=== PATIENT | male | born 1980 | race Caucasian/White ===

== ENCOUNTER 2020-06-23 14:05 | Emergency (ER) | payer MEDICAID ==
[~2020-06-23] VITALS: Ht 182.9 cm; Wt 81.6 kg
[2020-06-23 14:22] VITALS: BP_SYST 137
[2020-06-23 15:12] VITALS: BP_SYST 151
[2020-06-23 15:17] LABS: BASOPHILS % (AUTO) 0.2 % (0.0-2.0); EOSINOPHILS # (AUTO) 0.2 K/uL (0.0-0.4); EOSINOPHILS % (AUTO) 0.9 % (0.0-4.0); HEMOGLOBIN 14.2 g/dL (14.0-18.0); LYMPHOCYTES # (AUTO) 1.7 K/uL (1.0-5.5); LYMPHOCYTES % (AUTO) 10.4 % (20.5-51.5); MEAN CORPUSCULAR HEMOGLOBIN 31 pg (27-31); MEAN CORPUSCULAR HGB CONC 34 % (32-36); MEAN CORPUSCULAR VOLUME 92 fL (79.0-98.0); MONOCYTES # (AUTO) 1.6 K/uL (0.0-1.0); MONOCYTES % (AUTO) 10.2 % (1.7-9.3); NEUTROPHILS # (AUTO) 12.6 K/uL (1.8-7.7); NEUTROPHILS % (AUTO) 78.3 % (40.0-70.0); PLATELET COUNT (AUTO) 233 K/uL (130-430); RED BLOOD CELL COUNT(AUTO) 4.57 MIL/uL (4.2-6.2); RED CELL DISTRIBUTION WIDTH 13.4 % (9.0-15.0); WHITE BLOOD COUNT (AUTO) 16.1 K/uL (4.8-10.8)
[2020-06-23 15:31] LABS: CALCIUM 8.1 mg/dL (8.4-11.0); CREATININE 0.92 mg/dL (0.55-1.30); POTASSIUM 3.8 mmol/L (3.5-5.1)
[2020-06-23 15:36] LABS: ALBUMIN 2.8 g/dL (3.4-4.8); TOTAL BILIRUBIN 0.3 mg/dL (0.0-1.0)
[2020-06-23 15:37] LABS: INR 0.9 (0.80-1.20); PROTHROMBIN TIME 9.7 SECS (9.5-12.5)
[2020-06-23 15:47] LABS: C-REACTIVE PROTEIN QUANT 8.2 mg/dL (0-0.5)
[2020-06-23] MEDS ORDERED: VANCOMYCIN HCL 1,000 MG in NS 250 ML IV ONE (16:15)
[2020-06-23] MEDS ORDERED: CLIN300C12 PO (16:46)
[2020-06-23] MEDS ORDERED: VANCOMYCIN HCL 1000 MG/VIAL IV ONE (17:24)
== END 2020-06-23 18:30 | disposition home or self-care (01) ==
LOC: SED 14:05
DX: L03.113 Cellulitis of right upper limb (principal)
CPT/HCPCS: 36415; 73080; 80053; 83605; 85025; 85610; 85730; 86140; 96365; 99284; J3370

== ENCOUNTER 2021-01-07 09:06 | Emergency (ER) | payer MEDICAID ==
[~2021-01-07] VITALS: Ht 185.4 cm; Wt 81.6 kg
[~2021-01-07 09:06] MED LIST: CLIN300C12 PO
[2021-01-07 09:10] VITALS: BP_SYST 150
--- NOTE | 2021-01-07 09:11 | NUR ---
BROUGHT BACK TO BED #2 AND TRIAGED. REPORT GIVEN TO MARTINE
--- NOTE | 2021-01-07 09:22 | NUR ---
PT COMES TO ER WITH GROIN PAIN FOR THE LAST TWO DYS. SITE RED, HOT TO TOUCH/PAINFUL. DENIES ANY FEVERS/CHILLS. PT DOES ADMIT TO SHAVING IN THE AREA. YING FOR ER MD VICK.
--- NOTE | 2021-01-07 09:26 | NUR ---
DR PADILLA IN ROOM FOR EXAM.
[2021-01-07] MEDS ORDERED: SULF1TAB48 PO (10:13)
[2021-01-07] MEDS ORDERED: IBUP-1969 PO (10:14)
--- NOTE | 2021-01-07 10:16 | NUR ---
Patient given written and verbal discharge instructions and verbalizes understanding. ER MD discussed with patient the results and treatment provided. Patient in stable condition. ID arm band removed. Rx of BACTRIM,MOTRIN given. Patient educated on pain management and to follow up with PMD. Pain Scale . Opportunity for questions provided and answered. Medication side effect fact sheet provided.
== END 2021-01-07 10:16 | disposition home or self-care (01) ==
LOC: SED 09:06
DX: N49.2 Inflammatory disorders of scrotum (principal); Z79.899 Other long term (current) drug therapy
CPT/HCPCS: 99283

== ENCOUNTER 2021-05-18 16:25 | Emergency (ER) | payer SELFPAY ==
[~2021-05-18] VITALS: Ht 185.4 cm; Wt 81.6 kg
[~2021-05-18 16:25] MED LIST changes: +CLIN-142 PO; -CLIN300C12 PO; +IBUP-1969 PO; +SULF1TAB48 PO
[2021-05-18 17:00] VITALS: BP_SYST 146
--- NOTE | 2021-05-18 17:04 | NUR ---
pt. came byself with c/o pain to left shoulder 10/14
--- NOTE | 2021-05-18 18:20 | NUR ---
ER in triage examining patient.
[2021-05-18 19:02] VITALS: BP_SYST 145
--- NOTE | 2021-05-18 19:15 | NUR ---
shoulder sling applied, pt. requesting pain med
[2021-05-18] MEDS ORDERED: LIDO700A30 TP (19:16)
[2021-05-18] MEDS ORDERED: NAPR-1172 PO (19:16)
--- NOTE | 2021-05-18 19:25 | NUR ---
Patient given written and verbal discharge instructions and verbalizes understanding. ER MD discussed with patient the results and treatment provided. Patient in stable condition. ID arm band removed. Rx of Naproxen given. Patient educated on pain management and to follow up with PMD. Pain Scale 8. Opportunity for questions provided and answered. Medication side effect fact sheet provided.
[2021-05-18] MEDS ORDERED: NAPROXEN 250 MG TABLET PO ONE (19:30)
== END 2021-05-18 19:24 | disposition home or self-care (01) ==
LOC: SED 16:25
DX: M25.512 Pain in left shoulder (principal); Z79.899 Other long term (current) drug therapy
CPT/HCPCS: 73030; 99283

== ENCOUNTER 2021-05-20 12:56 | Emergency (ER) | payer SELFPAY ==
[~2021-05-20] VITALS: Ht 185.4 cm; Wt 81.6 kg
[2021-05-20 12:56] VITALS: BP_SYST 128
[~2021-05-20 12:56] MED LIST changes: +LIDO700A30 TP; +NAPR-1172 PO
[2021-05-20] MEDS ORDERED: KETOROLAC TROMETHAMINE 60 MG/2 ML VIAL IM ONE (13:30)
[2021-05-20] MEDS ORDERED: IBUP-1971 PO (14:08)
[2021-05-20] MEDS ORDERED: HYDR-3917 PO (14:08)
[2021-05-20 14:16] LABS: CALCIUM 8.7 mg/dL (8.4-11.0); CREATININE 0.96 mg/dL (0.55-1.30); POTASSIUM 3.4 mmol/L (3.5-5.1)
[2021-05-20 14:19] LABS: HEMATOCRIT 44.8 % (36-54); HEMOGLOBIN 14.6 g/dL (14.0-18.0); MEAN CORPUSCULAR HEMOGLOBIN 30 pg (27-31); MEAN CORPUSCULAR HGB CONC 33 % (32-36); MEAN CORPUSCULAR VOLUME 90 fL (79.0-98.0); PLATELET COUNT (AUTO) 179 K/uL (130-430); RED BLOOD CELL COUNT(AUTO) 4.96 MIL/uL (4.2-6.2); RED CELL DISTRIBUTION WIDTH 14.2 % (9.0-15.0); WHITE BLOOD COUNT (AUTO) 18.4 K/uL (4.8-10.8)
[2021-05-20 14:29] LABS: ALBUMIN 2.9 g/dL (3.4-4.8); TOTAL BILIRUBIN 1.1 mg/dL (0.0-1.0)
[2021-05-20 14:37] LABS: C-REACTIVE PROTEIN QUANT 29.6 mg/dL (0-0.5)
[2021-05-20 15:00] LABS: ATYPICAL LYMPHOCYTES % 2 % (0-0); BAND % (MANUAL) 6 % (0-6); BASOPHILS % (MANUAL) 0 % (0-2); EOSINOPHILS % (MANUAL) 0 % (0-7); LYMPHOCYTES % (MANUAL) 6 % (20-46); MONOCYTES % (MANUAL) 11 % (0-11)
[2021-05-20 15:16] VITALS: BP_SYST 124
[2021-05-20 16:41] LABS: ERYTHROCYTE SEDIMENTATION RATE 23 MM/HR (0-15)
== END 2021-05-20 15:16 | disposition home or self-care (01) ==
LOC: SED 12:56
DX: M79.641 Pain in right hand (principal); Z79.899 Other long term (current) drug therapy
CPT/HCPCS: 36415; 70450; 76376; 80053; 85007; 85027; 85651; 86140; 96372; 99284; J1885

== ENCOUNTER 2021-05-21 06:35 | Inpatient (IN) | payer SELFPAY ==
[~2021-05-21] VITALS: Ht 185.4 cm; Wt 81.6 kg
[~2021-05-21 06:35] MED LIST changes: +HYDR-3917 PO; +IBUP-1971 PO
[2021-05-21 06:45] VITALS: BP_SYST 140
[2021-05-21] MEDS ORDERED: VANCOMYCIN HCL 1,000 MG in NS 250 ML IV ONE (07:00)
[2021-05-21] MEDS ORDERED: CLINDAMYCIN 600 mg/50mL D5W 50 ML IV ONE (07:00)
[2021-05-21] MEDS ORDERED: VANCOMYCIN HCL 1000 MG/VIAL IV ONE ×2 (07:45→07:46)
[2021-05-21 08:09] LABS: BASOPHILS % (AUTO) 0.2 % (0.0-2.0); EOSINOPHILS # (AUTO) 0.1 K/uL (0.0-0.4); EOSINOPHILS % (AUTO) 0.3 % (0.0-4.0); HEMOGLOBIN 14.7 g/dL (14.0-18.0); LYMPHOCYTES # (AUTO) 1.5 K/uL (1.0-5.5); LYMPHOCYTES % (AUTO) 6.8 % (20.5-51.5); MEAN CORPUSCULAR HEMOGLOBIN 30 pg (27-31); MEAN CORPUSCULAR HGB CONC 33 % (32-36); MEAN CORPUSCULAR VOLUME 91 fL (79.0-98.0); MONOCYTES # (AUTO) 1.5 K/uL (0.0-1.0); NEUTROPHILS # (AUTO) 18.3 K/uL (1.8-7.7); NEUTROPHILS % (AUTO) 85.7 % (40.0-70.0); PLATELET COUNT (AUTO) 198 K/uL (130-430); RED BLOOD CELL COUNT(AUTO) 4.97 MIL/uL (4.2-6.2); RED CELL DISTRIBUTION WIDTH 14.3 % (9.0-15.0); WHITE BLOOD COUNT (AUTO) 21.4 K/uL (4.8-10.8)
[2021-05-21 08:28] LABS: CALCIUM 9.1 mg/dL (8.4-11.0); CREATININE 0.75 mg/dL (0.55-1.30); POTASSIUM 3.8 mmol/L (3.5-5.1)
[2021-05-21 08:42] LABS: ALBUMIN 2.4 g/dL (3.4-4.8); TOTAL BILIRUBIN 0.1 mg/dL (0.0-1.0)
[2021-05-21 09:11] LABS: C-REACTIVE PROTEIN QUANT 20.7 mg/dL (0-0.5)
[2021-05-21 12:44] VITALS: BP_SYST 149
[2021-05-21 12:46] VITALS: BP_SYST 149
[2021-05-21] MEDS ORDERED: NALOXONE HCL 0.4 MG/ML AMP (NARCAN) IVP PRN ×2 (13:45)
[2021-05-21] MEDS: VANCOMYCIN HCL 1,000 MG in NS 250 ML IV SCH ×2 (14:13→23:23)
[2021-05-21] MEDS: HYDROcodone/ACETAMIN 5-325 MG TAB (NORCO/ VICODIN) PO PRN ×2 (15:11→21:07)
[2021-05-21] MEDS ORDERED: DOCUSATE SODIUM 100 MG CAPSULE PO PRN (16:00)
[2021-05-21] MEDS ORDERED: ONDANSETRON HCL 4 MG/2 ML VIAL IVP PRN (16:00)
[2021-05-21] MEDS ORDERED: LORazepam 2 MG/ML VIAL IVP PRN (16:00)
[2021-05-21] MEDS ORDERED: ACETAMINOPHEN 325 MG TABLET PO PRN (16:00)
[2021-05-21] MEDS ORDERED: MUPIROCIN 2% TOPICAL OINTMENT 22 GM NS PRN (16:00)
[2021-05-21] MEDS ORDERED: ZOLPIDEM TARTRATE 5 MG TABLET PO PRN (16:00)
[2021-05-21] MEDS ORDERED: MAGNESIUM SULFATE 50 ML IV PRN (16:00)
[2021-05-21] MEDS ORDERED: POTASSIUM CHLORIDE 20 MEQ TAB.PRT.SR PO PRN (16:00)
[2021-05-21 18:00] VITALS: BP_SYST 134
[2021-05-21 20:45] VITALS: BP_SYST 129
[2021-05-21] MEDS ORDERED: cefTRIAXone 1 GM VIAL ONE (21:08)
[2021-05-21] MEDS: NACL 0.9% 1,000 ML IV SCH (21:24)
[2021-05-21] MEDS: HEPARIN SODIUM,PORCINE 5,000 UNITS/ML VIAL SUBCUT SCH (21:40)
[2021-05-22 00:08] VITALS: BP_SYST 144
[2021-05-22] MEDS: NACL 0.9% 1,000 ML IV SCH ×3 (01:40→14:10)
[2021-05-22] MEDS: VANCOMYCIN HCL 1,000 MG in NS 250 ML IV SCH ×3 (06:17→22:00)
[2021-05-22 06:32] LABS: BASOPHILS % (AUTO) 0.1 % (0.0-2.0); EOSINOPHILS # (AUTO) 0.1 K/uL (0.0-0.4); EOSINOPHILS % (AUTO) 0.6 % (0.0-4.0); HEMATOCRIT 42.4 % (36-54); HEMOGLOBIN 14.1 g/dL (14.0-18.0); LYMPHOCYTES # (AUTO) 1.7 K/uL (1.0-5.5); LYMPHOCYTES % (AUTO) 9.5 % (20.5-51.5); MEAN CORPUSCULAR HEMOGLOBIN 30 pg (27-31); MEAN CORPUSCULAR HGB CONC 33 % (32-36); MEAN CORPUSCULAR VOLUME 90 fL (79.0-98.0); MONOCYTES # (AUTO) 1.6 K/uL (0.0-1.0); MONOCYTES % (AUTO) 8.6 % (1.7-9.3); NEUTROPHILS # (AUTO) 14.9 K/uL (1.8-7.7); NEUTROPHILS % (AUTO) 81.2 % (40.0-70.0); PLATELET COUNT (AUTO) 201 K/uL (130-430); RED BLOOD CELL COUNT(AUTO) 4.72 MIL/uL (4.2-6.2); WHITE BLOOD COUNT (AUTO) 18.3 K/uL (4.8-10.8)
[2021-05-22 08:00] VITALS: BP_SYST 148
[2021-05-22] MEDS: HYDROcodone/ACETAMIN 5-325 MG TAB (NORCO/ VICODIN) PO PRN ×2 (08:57→18:41)
[2021-05-22] MEDS: HEPARIN SODIUM,PORCINE 5,000 UNITS/ML VIAL SUBCUT SCH ×2 (09:00→21:22)
[2021-05-22 09:01] LABS: CALCIUM 8.5 mg/dL (8.4-11.0); CREATININE 0.66 mg/dL (0.55-1.30); POTASSIUM 4.2 mmol/L (3.5-5.1)
[2021-05-22 12:00] VITALS: BP_SYST 137
[2021-05-22 12:33] LABS: BARBITURATE, URINE NEGATIVE (NEG <=200); BENZODIAZEPINE, URINE NEGATIVE (NEG <=150); CANNABINOID, URINE NEGATIVE (NEG <=50); COCAINE, URINE NEGATIVE (NEG <=150); METHAMPHETAMINES SCREEN,URINE POSITIVE (NEG <=500); OPIATE, URINE POSITIVE (NEG <=100); PHENCYCLIDINE SCREEN,URINE NEGATIVE (NEG <=25); UR TRICYCLIC ANTIDEPRESSANTS NEGATIVE (NEG <=300); URINE AMPHETAMINE POSITIVE (NEG <=500); URINE METHADONE NEGATIVE (NEG <=200); URINE OXYCODONE SCREEN NEGATIVE (NEG <=100); URINE PROPOXYPHENE SCREEN NEGATIVE (NEG <=300)
[2021-05-22 12:58] LABS: C-REACTIVE PROTEIN QUANT 23.9 mg/dL (0-0.5)
[2021-05-22 16:00] VITALS: BP_SYST 140
[2021-05-22 21:32] VITALS: BP_SYST 103; BP_SYST 130
[2021-05-23] MEDS: NACL 0.9% 1,000 ML IV SCH ×3 (01:20→17:33)
[2021-05-23] MEDS: HYDROcodone/ACETAMIN 5-325 MG TAB (NORCO/ VICODIN) PO PRN ×3 (05:09→18:56)
[2021-05-23] MEDS: VANCOMYCIN HCL 1,000 MG in NS 250 ML IV SCH ×3 (05:13→23:23)
[2021-05-23 05:52] VITALS: BP_SYST 128
[2021-05-23 08:00] VITALS: BP_SYST 129
[2021-05-23] MEDS: HEPARIN SODIUM,PORCINE 5,000 UNITS/ML VIAL SUBCUT SCH ×2 (09:48→21:20)
[2021-05-23 14:45] LABS: BASOPHILS % (AUTO) 0.3 % (0.0-2.0); EOSINOPHILS # (AUTO) 0.1 K/uL (0.0-0.4); EOSINOPHILS % (AUTO) 0.6 % (0.0-4.0); HEMATOCRIT 41.7 % (36-54); HEMOGLOBIN 13.8 g/dL (14.0-18.0); LYMPHOCYTES # (AUTO) 1.9 K/uL (1.0-5.5); LYMPHOCYTES % (AUTO) 14.7 % (20.5-51.5); MEAN CORPUSCULAR HEMOGLOBIN 29 pg (27-31); MEAN CORPUSCULAR HGB CONC 33 % (32-36); MEAN CORPUSCULAR VOLUME 89 fL (79.0-98.0); MONOCYTES # (AUTO) 1.2 K/uL (0.0-1.0); MONOCYTES % (AUTO) 9.4 % (1.7-9.3); NEUTROPHILS # (AUTO) 9.6 K/uL (1.8-7.7); PLATELET COUNT (AUTO) 239 K/uL (130-430); RED BLOOD CELL COUNT(AUTO) 4.67 MIL/uL (4.2-6.2); RED CELL DISTRIBUTION WIDTH 14.2 % (9.0-15.0)
[2021-05-23 14:55] LABS: WHITE BLOOD COUNT (AUTO) 12.8 K/uL (4.8-10.8)
[2021-05-23 15:06] LABS: CALCIUM 8.3 mg/dL (8.4-11.0); CREATININE 0.79 mg/dL (0.55-1.30)
[2021-05-23 15:17] LABS: TOTAL BILIRUBIN 0.2 mg/dL (0.0-1.0)
[2021-05-23 16:00] VITALS: BP_SYST 141
[2021-05-23 20:22] VITALS: BP_SYST 122
[2021-05-24] MEDS: HYDROcodone/ACETAMIN 5-325 MG TAB (NORCO/ VICODIN) PO PRN ×5 (00:22→21:58)
[2021-05-24 00:23] VITALS: BP_SYST 139
[2021-05-24] MEDS: NACL 0.9% 1,000 ML IV SCH ×3 (02:26→19:00)
[2021-05-24] MEDS: VANCOMYCIN HCL 1,000 MG in NS 250 ML IV SCH ×3 (05:23→22:06)
[2021-05-24 07:25] LABS: BASOPHILS # (AUTO) 0.1 K/uL (0.0-0.2); BASOPHILS % (AUTO) 0.4 % (0.0-2.0); EOSINOPHILS # (AUTO) 0.1 K/uL (0.0-0.4); EOSINOPHILS % (AUTO) 0.7 % (0.0-4.0); HEMOGLOBIN 14.5 g/dL (14.0-18.0); LYMPHOCYTES # (AUTO) 2.5 K/uL (1.0-5.5); LYMPHOCYTES % (AUTO) 17.9 % (20.5-51.5); MEAN CORPUSCULAR HEMOGLOBIN 29 pg (27-31); MEAN CORPUSCULAR HGB CONC 33 % (32-36); MEAN CORPUSCULAR VOLUME 89 fL (79.0-98.0); MONOCYTES # (AUTO) 1.9 K/uL (0.0-1.0); MONOCYTES % (AUTO) 13.4 % (1.7-9.3); NEUTROPHILS # (AUTO) 9.5 K/uL (1.8-7.7); NEUTROPHILS % (AUTO) 67.6 % (40.0-70.0); PLATELET COUNT (AUTO) 281 K/uL (130-430); RED BLOOD CELL COUNT(AUTO) 4.92 MIL/uL (4.2-6.2); RED CELL DISTRIBUTION WIDTH 14.2 % (9.0-15.0)
[2021-05-24 07:29] LABS: CALCIUM 8.8 mg/dL (8.4-11.0); CREATININE 0.77 mg/dL (0.55-1.30); POTASSIUM 4.2 mmol/L (3.5-5.1)
[2021-05-24 07:36] VITALS: BP_SYST 132
[2021-05-24] MEDS: HEPARIN SODIUM,PORCINE 5,000 UNITS/ML VIAL SUBCUT SCH ×2 (09:11→22:07)
[2021-05-24 16:15] VITALS: BP_SYST 142
[2021-05-24 20:00] VITALS: BP_SYST 147
[2021-05-25] VITALS: BP_SYST 142
[2021-05-25] MEDS: NACL 0.9% 1,000 ML IV SCH ×3 (03:20→21:29)
[2021-05-25] MEDS: HYDROcodone/ACETAMIN 5-325 MG TAB (NORCO/ VICODIN) PO PRN ×3 (03:46→14:58)
[2021-05-25] MEDS: VANCOMYCIN HCL 1,000 MG in NS 250 ML IV SCH ×3 (07:06→23:39)
[2021-05-25 08:00] VITALS: BP_SYST 136
[2021-05-25] MEDS: HEPARIN SODIUM,PORCINE 5,000 UNITS/ML VIAL SUBCUT SCH ×2 (09:01→21:31)
[2021-05-25 09:41] LABS: BASOPHILS # (AUTO) 0.1 K/uL (0.0-0.2); BASOPHILS % (AUTO) 0.6 % (0.0-2.0); EOSINOPHILS # (AUTO) 0.1 K/uL (0.0-0.4); EOSINOPHILS % (AUTO) 0.7 % (0.0-4.0); HEMATOCRIT 45.7 % (36-54); HEMOGLOBIN 15.1 g/dL (14.0-18.0); LYMPHOCYTES # (AUTO) 1.8 K/uL (1.0-5.5); LYMPHOCYTES % (AUTO) 14.4 % (20.5-51.5); MEAN CORPUSCULAR HEMOGLOBIN 30 pg (27-31); MEAN CORPUSCULAR HGB CONC 33 % (32-36); MEAN CORPUSCULAR VOLUME 90 fL (79.0-98.0); MONOCYTES # (AUTO) 1.4 K/uL (0.0-1.0); MONOCYTES % (AUTO) 11.1 % (1.7-9.3); NEUTROPHILS # (AUTO) 9.2 K/uL (1.8-7.7); NEUTROPHILS % (AUTO) 73.2 % (40.0-70.0); PLATELET COUNT (AUTO) 274 K/uL (130-430); RED BLOOD CELL COUNT(AUTO) 5.07 MIL/uL (4.2-6.2); RED CELL DISTRIBUTION WIDTH 14.2 % (9.0-15.0); WHITE BLOOD COUNT (AUTO) 12.5 K/uL (4.8-10.8)
[2021-05-25 12:00] VITALS: BP_SYST 136
[2021-05-25 13:06] LABS: CALCIUM 8.6 mg/dL (8.4-11.0); CREATININE 0.74 mg/dL (0.55-1.30); POTASSIUM 4.8 mmol/L (3.5-5.1)
[2021-05-25 19:00] VITALS: BP_SYST 127
[2021-05-26] VITALS: BP_SYST 139
[2021-05-26] MEDS: HYDROcodone/ACETAMIN 5-325 MG TAB (NORCO/ VICODIN) PO PRN (04:10)
[2021-05-26] MEDS ORDERED: AMOX-423 PO (07:55)
[2021-05-26] MEDS ORDERED: CLIN300C3 PO (07:55)
[2021-05-26 08:20] LABS: BASOPHILS # (AUTO) 0.1 K/uL (0.0-0.2); BASOPHILS % (AUTO) 0.3 % (0.0-2.0); EOSINOPHILS # (AUTO) 0.2 K/uL (0.0-0.4); EOSINOPHILS % (AUTO) 0.9 % (0.0-4.0); HEMATOCRIT 48.6 % (36-54); HEMOGLOBIN 15.7 g/dL (14.0-18.0); LYMPHOCYTES # (AUTO) 2.5 K/uL (1.0-5.5); LYMPHOCYTES % (AUTO) 12.6 % (20.5-51.5); MEAN CORPUSCULAR HEMOGLOBIN 29 pg (27-31); MEAN CORPUSCULAR HGB CONC 32 % (32-36); MEAN CORPUSCULAR VOLUME 89 fL (79.0-98.0); MONOCYTES % (AUTO) 10.5 % (1.7-9.3); NEUTROPHILS # (AUTO) 14.7 K/uL (1.8-7.7); PLATELET COUNT (AUTO) 339 K/uL (130-430); RED BLOOD CELL COUNT(AUTO) 5.44 MIL/uL (4.2-6.2); RED CELL DISTRIBUTION WIDTH 14.1 % (9.0-15.0); WHITE BLOOD COUNT (AUTO) 19.5 K/uL (4.8-10.8)
[2021-05-26 08:35] LABS: CREATININE 0.63 mg/dL (0.55-1.30); POTASSIUM 4.4 mmol/L (3.5-5.1)
[2021-05-26 08:37] VITALS: BP_SYST 112
[2021-05-26] MEDS: HEPARIN SODIUM,PORCINE 5,000 UNITS/ML VIAL SUBCUT SCH (09:43)
[2021-05-26 12:23] LABS: NEUTROPHILS % (AUTO) 75.7 % (40.0-70.0)
[2021-05-26 13:26] VITALS: BP_SYST 118
== END 2021-05-26 13:01 | disposition home or self-care (01) | DRG 871 ==
LOC: SED 06:35 → SMU 11:38
PROVIDERS: ADMIT General Practice; ATTEND General Practice
PROC: 05HY33Z Insertion of Infusion Device into Upper Vein, Percutaneous Approach (ICD-10-PCS; principal; 2021-05-23)
PROC: B54MZZA Ultrasonography of Right Upper Extremity Veins, Guidance (ICD-10-PCS; 2021-05-23)
DX: A41.9 Sepsis, unspecified organism (principal); E43 Unspecified severe protein-calorie malnutrition; L03.113 Cellulitis of right upper limb; E87.1 Hypo-osmolality and hyponatremia; Z20.822 Contact with and (suspected) exposure to COVID-19; F12.90 Cannabis use, unspecified, uncomplicated; F17.210 Nicotine dependence, cigarettes, uncomplicated; F15.10 Other stimulant abuse, uncomplicated; Z91.19 Patient's noncompliance with other medical treatment and regimen; Z71.51 Drug abuse counseling and surveillance of drug abuser; Z68.23 Body mass index [BMI] 23.0-23.9, adult
CPT/HCPCS: 36415; 71045; 73200-TC; 76376; 80048; 80053; 80202; 80307; 83036; 83605; 83735; 85025; 86140; 87040; 93971; 96365; 96366; 96368; 99285; J0696; J1644; J3370; J3490; J7050; J7060